=== PATIENT | female | born 1995 | race Two or more races ===

== ENCOUNTER 2022-02-04 11:52 | Emergency (ER) | payer BC ==
[~2022-02-04] VITALS: Ht 160 cm; Wt 61.2 kg
--- NOTE | 2022-02-04 12:00 | NUR ---
SEEN AND EXAMINED BY .
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
[2022-02-04] MEDS ORDERED: LIDOCAINE 1% INJ 50 ML MDV IJ ONE (12:47)
--- NOTE | 2022-02-04 13:40 | NUR ---
CAUTERIZING AT BEDSIDE
--- NOTE | 2022-02-04 14:08 | NUR ---
Patient discharged to home in stable condition. Written and verbal after care instructions given. Patient verbalizes understanding of instruction.
[2022-02-04 14:09] VITALS: BP 116/64
== END 2022-02-04 14:09 | disposition home or self-care (01) ==
LOC: ER 11:52
DX: S60.112A Contusion of left thumb with damage to nail, initial encounter (principal); W23.0XXA Caught, crushed, jammed, or pinched between moving objects, initial encounter; Y93.89 Activity, other specified; Y92.89 Other specified places as the place of occurrence of the external cause; Y99.8 Other external cause status
CPT/HCPCS: 11740; 73140; 99284; J3490